=== PATIENT | male | born 1990 | race Caucasian/White ===

== ENCOUNTER 2016-11-15 13:47 | Emergency (ER) | payer SELFPAY ==
[~2016-11-15] VITALS: Ht 172.7 cm; Wt 72.7 kg
[2016-11-15 14:19] VITALS: BP 163/88
== END 2016-11-15 16:14 | disposition home or self-care (01) ==
LOC: ED 13:47
DX: Z77.21 Contact with and (suspected) exposure to potentially hazardous body fluids (principal)
CPT/HCPCS: 36415